=== PATIENT | female | born 1965 | race Caucasian/White ===

== ENCOUNTER 2019-09-16 12:57 | Emergency (ER) | payer OTHER ==
[~2019-09-16] VITALS: Ht 177.8 cm; Wt 63.5 kg
--- OUTSIDE RECORDS SUMMARY | ~2019-09-16 | XMS | Encounter Summary ---
Demographics + + + | Address | [address] | | | [place] [address] | + + + | Home Phone | | + + + | Preferred Language | Unknown | + + + | Marital Status | | + + + | Buddhism Affiliation | Unknown | + + + | Race | Unknown | + + + | Ethnic Group | Unknown | + + + Author + + + | Author | [facility] | | | and Kaliaana | + + + | Organization | [facility] | | | and Kaliaana | + + + | Address | Unknown | + + + | Phone | Unavailable | + + + Support + + +---------+ + | Name | Relationship | Address | Phone | + + +---------+ + | Archie Fulton | ECON | Unknown | | + + +---------+ + Care Team Providers + +------+ + | Care Edge Inker Heels Name | Role | Phone | + +------+ + | Bridget Hernandez PA-C | PCP | | + +------+ + Encounter Details +--------+---------+ + + + | Date | Type | Department | Care Team | Description | +--------+---------+ + + + | 07/22/ | Office | [facility] | Sim Abdalla, | Health examination | | 2020 | Visit | EXAMS [address] | [address] | of defined | | | | [place] | [place] | subpopulation | | | | [phone] | [id number] | (Primary Dx) | | | | [phone] | | | +--------+---------+ + + + Social History + +-------+ +--------+------+ | Tobacco Use | Types | Packs/Day | Years | Date | | | | | Used | | + +-------+ +--------+------+ | Never Assessed | | | | | + +-------+ +--------+------+ + + + | Sex Assigned at | Date Recorded | | | | + + + | Not on file | | + + + documented as of this encounter Last Filed Vital Signs + + + + + | Vital Sign | Reading | Time Taken | Comments | + + + + + | Blood Pressure | 122/78 | 07/23/2019 1:09 PM | | | | | PDT | | + + + + + | Pulse | 78 | 07/23/2019 1:09 PM | | | | | PDT | | + + + + + | Temperature | - | - | | + + + + + | Respiratory Rate | 17 | 07/23/2019 1:09 PM | | | | | PDT | | + + + + + | Oxygen Saturation | - | - | | + + + + + | Inhaled Oxygen | - | - | | | Concentration | | | | + + + + + | Weight | 64.2 kg (141 lb 8.6 | 07/23/2019 1:09 PM | | | | oz) | PDT | | + + + + + | Height | 177.8 cm (5' 10") | 07/23/2019 1:09 PM | | | | | PDT | | + + + + + | Body Mass Index | 20.31 | 07/23/2019 1:09 PM | | | | | PDT | | + + + + + documented in this encounter Progress Notes Sim Abdalla MD - 07/23/2019 1:00 PM Anita presented for a Third Class [facility] medical exam. Several people in her immediate family have been involved in flying, including her father a nd 2 brothers. One brother is a professional pilot boat deckhand in [place] and another brother is working toward his private license. 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 She has had a few medical issues but no serious health problems. For a while she was troub led by occasional migraine headaches. 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 Apparently some o f the chemicals being used for the painting were quite noxious and bothered many people. Jeet marcelo herself found that the chemicals stimulated her migraine headaches. She went through alphonso pause about 4 years ago and since that time she has had no headaches although she is still t roubled by occasional hot flushing. She has had a section. She had release of a right trigger thumb. She has been tr oubled by some arthritic discomfort in her hands and has found that tumarac has been helpful in relieving her symptoms. She is taking no prescription medications. She does take a multivitamin, B2, some mineral supplements, and tumarac. She listed allergies to sulfa and Compazine. She has been troubled by very poor vision nearly all her life. She began wearing glasses i n grade school. She had a recent eye examination. She wears glasses with unifocal lenses b ut will need the addition of a reading component in the near future. On examination she appeared to be in good general health. The only notable finding on her exam was her need for corrective lenses for both near and distant vision. She has a small s car at the base of her right thumb related to trigger finger release. She has a scar across her lower abdomen related to her C-sections. Her urinalysis was normal. Disposition: She was given a third class medical certificate with the limitation to wear co rrective lenses. documented in this en counter Plan of Treatment Not on filedocumented as of this encounter Procedures + +--------+ + + + | Procedure Name | Priori | Date/Time | Associated Diagnosis | Comments | | | ty | | | | + +--------+ + + + | POC URINE COLLECTION | Routin | 07/23/2019 | Health examination | Results for this | | | e | 1:13 PM | of defined | procedure are in the | | | | PDT | subpopulation | results section. | + +--------+ + + + documented in this encounter Results POCT Urinalysis Dipstick Automated (07/23/2019 1:13 PM PDT) + + + + + + | Component | Value | Ref Range | Performed | Pathologist | | | | | At | Signature | + + + + + + | Color, UA, | Yellow | Yellow, Light | | | | POC | | Yellow | | | + + + + + + | Clarity, | Clear | | | | | UA, POC | | | | | + + + + + + | Glucose, | Negative | Negative | | | | UA, POC | | | | | + + + + + + | Bilirubin, | Negative | Negative | | | | UA, POC | | | | | + + + + + + | Ketones, | Negative | Negative, 100 | | | | UA, POC | | mg/dL | | | + + + + + + | Specific | 1.015 | 1.001 - 1.030 | | | | Mehama, | | | | | | UA, POC | | | | | + + + + + + | Blood, UA, | Negative | Negative | | | | POC | | | | | + + + + + + | pH, UA, POC | 5.5 | 5.0, 6.0, 7.0, | | | | | | 8.0, 5.5, 6.5, | | | | | | 7.5 | | | + + + + + + | Protein, | Negative | Negative | | | | UA, POC | | | | | + + + + + + | Urobilinoge | 0.2 | 0.2, Negative, | | | | n, UA, POC | | Normal, < 0.2 | | | | | | mg/dL, 1 mg/dL, | | | | | | < 0.2 E.U./dl, | | | | | | 1.0 E.U./dL, | | | | | | 0.2 mg/dL | | | + + + + + + | Nitrite, | Negative | Negative | | | | UA, POC | | | | | + + + + + + | Leukocyte | Negative | Negative | | | | Esterase, | | | | | | UA, POC | | | | | + + + + + + | Reducing | | | | | | Substances, | | | | | | Urine | | | | | + + + + + + | Bilirubin | | | | | | Confirmatio | | | | | | n by | | | | | | Ictotest, | | | | | | Urine | | | | | + + + + + + | Remark | | | | | + + + + + + + + | Specimen | + + | Urine | + + documented in this encounter Visit Diagnoses + + | Diagnosis | + + | Health examination of defined subpopulation - Primary | + + documented in this encounter
--- OUTSIDE RECORDS SUMMARY | ~2019-09-16 | XMS | Clinical Summary ---
Demographics + + + | Address | [address] | | | [place] [address] | + + + | Home Phone | | + + + | Preferred Language | Unknown | + + + | Marital Status | | + + + | Yazidism Affiliation | Unknown | + + + | Race | Unknown | + + + | Ethnic Group | Unknown | + + + Author + + + | Author | [facility] | | | and [place] | + + + | Organization | [facility] | | | and Kaliaana [...] Team Providers + +------+ + | Care Nut Sheller Name | Role | Phone | + +------+ + | Bridget Hernandez PA-C | PCP | | + +------+ + Allergies Not on File Medications No known medications Active Problems Not on file Encounters +--------+---------+ + + + | Date | Type | Specialty | Care Team | Description | +--------+---------+ + + + | 07/22/ | Office | General Surgery | Sim Abdalla, | Health examination | | 2020 | Visit | | MD | of defined | | | | | | subpopulation | | | | | | (Primary Dx) | +--------+---------+ + + + from Last 3 Months Social History + +-------+ +--------+------+ | Tobacco [...] on file | | + + + Last Filed Vital Signs + + + [...] | | + + + + + Plan of Treatment + + +-------+ + | Health Maintenance | Due Date | Last | Comments | | | | Done | | + + +-------+ + | Hepatitis C | | | | | Screening | 4 | | | + + +-------+ + | Vaccine: | | | | | Dtap/Tdap/Td (1 - | 3 | | | | Tdap) | | | | + + +-------+ + | Cervical Cancer | | | | | Screening (Pap) | 4 | | | + + +-------+ + | Colorectal Cancer | | | | | Screening | 4 | | | | (Colonoscopy) | | | | + + +-------+ + | Vaccine: Zoster (1 | | | | | of 2) | 4 | | | + + +-------+ + | Breast Cancer | | | | | Screening | 9 | | | + + +-------+ + | Vaccine: Influenza | | | | | (#1) | 0 | | | + + +-------+ + Procedures + +--------+ + + + | [...] section. | + +--------+ + + + from Last 3 Months Results POCT Urinalysis Dipstick Automated (07/23/2019 1:13 [...] 1.001 - 1.030 | | | | Nora, | | | | | | UA, [...] + + | Urine | + + from Last 3 Months Advance Directives + + + + + | Type | Date Recorded | Patient | Explanation | | | | Communications Writer | | + + + + + | Power of | | | | | Audio Installer | | | | + + + + + | Advance | | | | | Directive | | | | + + + + +
[~2019-09-16 12:57] MED LIST: IRON325 M1 PO; MAGNESIUM250 MG PO; MULTIVITAMINS1 EAC7 PO
[2019-09-16] MEDS ORDERED: CRUTCH1 EACH MISC (14:02)
== END 2019-09-16 14:27 | disposition home or self-care (01) ==
LOC: ED 12:57
DX: S93.402A Sprain of unspecified ligament of left ankle, initial encounter (principal); Z88.2 Allergy status to sulfonamides; Z88.8 Allergy status to other drugs, medicaments and biological substances; X50.1XXA Overexertion from prolonged static or awkward postures, initial encounter
CPT/HCPCS: 73610; 99283-25

== ENCOUNTER 2021-10-18 05:40 | Day surgery (SDC) | payer OTHER ==
[~2021-10-18] VITALS: Ht 177.8 cm; Wt 65.9 kg
[~2021-10-18 05:40] MED LIST changes: +CEPHALEXIN500 MG PO; +CRANBERRY425 MG PO; +CRUTCH1 EACH MISC; +HYDROCODON-ACE1 EA10 PO; +L-LYSINE500 M1 PO; +OSTERA TABLET1 EACH PO; +PROBIOTIC1 EAC6 PO; +TURMERIC500 M3 PO; +VITAMIN E OIL-V52 M1 TOP
[2021-10-18] MEDS ORDERED: [UNRECOGNIZED DRUG - OTHER] PO (06:13)
--- NOTE | 2021-10-18 09:22 | NUR ---
10/18/21 0922 Prema Payne 0889 PT ARRIVED IN PACU SLEEPY WITH NO C/O'S. 0845 XRAYS DONE. 0900 SITTING AT BEDSIDE SIPPING ON WATER. 0915 BOOT PLACED ON L FOOT. DC INSTRUCTIONS GIVEN. ALL QUESTIONS ANSWERED. LEFT VIA W/C.
--- NOTE | 2021-10-21 10:56 | OR ---
[facility] [address] [place], [place] [address] Signed DATE OF OPERATION: 10/18/2021 SURGEON: Rome Gunderson DPM PREOPERATIVE DIAGNOSIS: Hallux valgus with bunion deformity, left foot. POSTOPERATIVE DIAGNOSIS: Hallux valgus with bunion deformity, left foot. PORTAL DEVELOPER SURGEON: Babatunde Mckeon DPM ANESTHESIA: IV general with local block, left foot. TIP SCOURER: Rome Hubbard. SPECIMEN TO PATHOLOGY: None. PROCEDURE: Bunionectomy with first metatarsal osteotomy, left foot. DESCRIPTION OF PROCEDURE: The patient was brought to the operating room and placed on the table in the supine position. Anesthesia Department administered IV sedation, after which a local block was given to the left foot using a total of 10 mL 1:1 mixture of 2% lidocaine plain and 0.5% ropivacaine plain. The left leg and foot were then prepped and draped in the usual sterile manner and an Esmarch was used for hemostasis. Attention was initially directed to the dorsal/medial aspect of the left first MPJ, where a linear longitudinal incision was made approximately 1 cm medial to the extensor hallucis longus tendon. The incision was deepened through subcutaneous tissue using careful dissection and cautery as necessary for hemostasis. Once at the level of deep fascia and joint capsule, the incision was deepened to bone and soft tissues were reflected medially to expose the bony prominence at the medial first metatarsal head. A small amount of bone was then resected from the medial first metatarsal head, removing approximately 2 mm of bone. At this time, attention was directed to the first Electronically Signed By: ROME GUNDERSON DPM 10/21/21 1056 PATIENT NAME: STANLEY OATES OPERATIVE REPORT DATE OF : 61 REPORT #: [id number] PHYSICIAN: ROME GUNDERSON DPM PCP: KOURTNEY FLOYD REPORT IS CONFIDENTIAL AND NOT TO BE RELEASED WITHOUT AUTHORIZATION [facility] [address] [place], [place] [address] Signed intermetatarsal space, where a lateral release was performed. Attention then redirected to the medial first metatarsal head, where a long dorsal arm chevron osteotomy was made from medial to lateral through the first metatarsal. The metatarsal head was then shifted laterally, 9 mm, then secured with two K-wires. The position and alignment were then checked intraoperatively with fluoroscopy and alignment was deemed adequate. At this time, two cannulated screws were placed over the pins securing the osteotomy site using a 3.0 x 16 mm screw more distally and the more proximal screw, a 3.0 x 14 mm screw. At this time, the attention was directed to the remaining shelf of bone medially, which was then resected using power instrumentation. The power instrumentation also used to smooth the bone margins medially and to remove any sharp areas of bone. At this time, the surgical site was irrigated with copious amounts of normal saline. The alignment as well as hardware checked with intraoperative fluoroscopy and then the surgical site closed with 3-0 Vicryl for deep fascia and joint capsule, subcutaneous tissue closed using 4-0 Vicryl and skin closed with skin bashir. Dressings then applied consisting of Adaptic, Betadine-soaked gauze, dry gauze, Flexicon, and Coban for mild compression, as well as to splint the position to the toe. INTRAOPERATIVE COMPLICATIONS: None. ESTIMATED BLOOD LOSS: Less than 5 mL. The patient tolerated the procedure and the anesthesia well and left the operating room with vital signs stable and vascular status intact to the left foot as evidenced by hyperemia with removal of the Esmarch. Rome Gunderson DPM DFB/KANEL /[id number] Electronically Signed By: ROME GUNDERSON DPM 10/21/21 1056 PATIENT NAME: STANLEY OATES OPERATIVE REPORT DATE OF : 61 REPORT #: [id number] PHYSICIAN: ROME GUNDERSON DPM PCP: KOURTNEY FLOYD REPORT IS CONFIDENTIAL AND NOT TO BE RELEASED WITHOUT AUTHORIZATION [address] [place], [place] [address] Signed Copies: ~ Electronically Signed By: ROME GUNDERSON DPM 10/21/21 1056 PATIENT NAME: STANLEY OATES OPERATIVE REPORT DATE OF : 61 REPORT #: [id number] PHYSICIAN: ROME GUNDERSON DPM PCP: KOURTNEY FLOYD REPORT IS CONFIDENTIAL AND NOT TO BE RELEASED WITHOUT AUTHORIZATION
== END 2021-10-18 09:15 | disposition home or self-care (01) ==
LOC: DS 05:40 → OPS 05:40 → DS 07:30 → OPS 07:30
PROVIDERS: ATTEND Podiatrist Foot Surgery
PROC: 0QSP04Z Reposition Left Metatarsal with Internal Fixation Device, Open Approach (ICD-10-PCS; principal; 2021-10-18 07:30)
DX: M20.12 Hallux valgus (acquired), left foot (principal); Z88.2 Allergy status to sulfonamides; M19.90 Unspecified osteoarthritis, unspecified site; G25.81 Restless legs syndrome; M21.612 Bunion of left foot
CPT/HCPCS: 01480; 73620; 73630; C1713; J0690; J1100; J2001; J2250; J2405; J2704; J2795; J3010; J7121

== ENCOUNTER 2024-11-02 11:57 | Day surgery (SDC) | payer OTHER ==
[~2024-11-02] VITALS: Ht 177.8 cm; Wt 66.0 kg
--- NOTE | ~2024-11-02 | OR ---
[facility] [address] [place], [place] [address] Draft DATE OF OPERATION: 11/02/2024 SURGEON: Mark Singh MD PREOPERATIVE DIAGNOSIS: Colon screening. POSTOPERATIVE DIAGNOSIS: Normal colon to cecum. PROCEDURE: Total colonoscopy to cecum. ANESTHESIA: Intravenous sedation fentanyl 100 mcg and Versed 5 mg. INDICATION: This 59-year-old white woman is a patient of SHEILA Clark. She was referred to me with a breast biopsy finding showing atypical hyperplasia and is anticipated to have a LENA piano teacher localization excision of the breast lesion this . Additionally, she has need for colonoscopy. Her last colonoscopy was greater than [address] Davide Alonso which was said to be normal. She has no current symptoms of bleeding, diarrhea or constipation and no family history of colon cancer though her mother has had colon polyps. She is admitted to undergo screening colonoscopy, understands the risk of bleeding, infection, and perforation. FINDINGS: The prep was excellent. Complete colonoscopy was undertaken of the cecum with full intubation of the cecum. She had no evidence of polyps, diverticular formation, colitis, or cancer. DESCRIPTION OF PROCEDURE: The patient was brought to the endoscopy suite and placed in lateral decubitus position, given intravenous sedation to the point of slurred speech and nystagmus. Digital rectal examination was normal. An Olympus video colonoscope was passed in the rectum and manipulated throughout the colon ultimately intubating the cecum itself. The ileocecal valve and appendiceal orifice were normal. Scope was withdrawn from that point. Examination throughout showed no sign of abnormality specifically no polyps, diverticular formation, colitis, PATIENT NAME: STANLEY OATES OPERATIVE REPORT DATE OF : 61 REPORT #: [id number] PHYSICIAN: MARK SINGH MD PCP: KOURTNEY FLOYD REPORT IS CONFIDENTIAL AND NOT TO BE RELEASED WITHOUT AUTHORIZATION [facility] [address] [place], [place] [address] Draft or cancer. Retroflexed view of the rectum was normal. Scope was removed. The patient was taken to the recovery room in good condition. CONCLUDING DIAGNOSIS: Normal colon to cecum. PLAN: Recommend repeat colonoscopy in 10 years, sooner if clinically indicated. She will return to the ongoing care of SHEILA Clark. Additionally, her biopsy of the breast is planned for this by LENA gallegos localization technique. MD JAREN Preciado/CYRUS /[id number] cc: SHEILA Clark Copies: KOURTNEY FLOYD ~ PATIENT NAME: STANLEY OATES OPERATIVE REPORT DATE OF : 61 REPORT #: [id number] PHYSICIAN: MARK SINGH MD PCP: KOURTNEY FLOYD REPORT IS CONFIDENTIAL AND NOT TO BE RELEASED WITHOUT AUTHORIZATION
[~2024-11-02 11:57] MED LIST changes: +CALCIUM + D3 E1 EACH PO; +DOTTI1 EAC2 TD; +IBLOOD GLUCOSE TEST STRIP 1 EA TEST VI PRN; +LACTATED RINGER'S 1,000 ML IV SCH; +LIDOCAINE HCL 1% 5 ML SDV INJ ONE; +MAG GLYCINATE100 MG PO; +MAGNESIUM CITR100 M1 PO; +MIDAZOLAM HCL 5 MG/5 ML VIAL IV PRN; +PROGESTERONE100 MG PO; +SAMBUCUS E50 MG/5 M1 PO; +[UNRECOGNIZED DRUG - OTHER] PO; +fentaNYL citrate 100 MCG/2 ML VIAL IV PRN
[2024-11-02 12:19] VITALS: BP 153/80
[2024-11-02] MEDS ORDERED: MIDAZOLAM HCL 5 MG/5 ML VIAL ONE (12:54)
[2024-11-02] MEDS ORDERED: fentaNYL citrate 100 MCG/2 ML VIAL ONE (12:54)
--- NOTE | 2024-11-02 13:45 | NUR ---
11/02/24 1345 Hoda Zamudio 1338: PT ARRIVES TO PACU. REPORT RECEIVED FROM VETERINARY PHYSIOLOGIST.
[2024-11-02 14:30] VITALS: BP 124/73
== END 2024-11-02 14:38 | disposition home or self-care (01) ==
LOC: DS 11:57
PROVIDERS: ATTEND Surgery
PROC: 0DJD8ZZ Inspection of Lower Intestinal Tract, Via Natural or Artificial Opening Endoscopic (ICD-10-PCS; principal; 2024-11-02 13:00)
DX: Z12.11 Encounter for screening for malignant neoplasm of colon (principal); N60.91 Unspecified benign mammary dysplasia of right breast; Z88.2 Allergy status to sulfonamides; Z88.5 Allergy status to narcotic agent; Z88.8 Allergy status to other drugs, medicaments and biological substances
CPT/HCPCS: J2250; J3010; J7121

== ENCOUNTER 2024-11-05 05:50 | Day surgery (SDC) | payer OTHER ==
[~2024-11-05] VITALS: Ht 177.8 cm; Wt 66.0 kg
[~2024-11-05 05:50] MED LIST changes: -IBLOOD GLUCOSE TEST STRIP 1 EA TEST VI PRN; -LIDOCAINE HCL 1% 5 ML SDV INJ ONE; -MIDAZOLAM HCL 5 MG/5 ML VIAL IV PRN; -fentaNYL citrate 100 MCG/2 ML VIAL IV PRN
[2024-11-05 06:03] VITALS: BP 150/85
[2024-11-05] MEDS ORDERED: IBLOOD GLUCOSE TEST STRIP 1 EA TEST VI PRN ×2 (07:00→08:15)
[2024-11-05] MEDS ORDERED: HEParin SOD (PORCINE) 5,000 UNIT/ML SDV SUB-Q SCH (07:00)
[2024-11-05] MEDS ORDERED: LIDOCAINE HCL 1% 5 ML SDV INJ ONE (07:00)
[2024-11-05] MEDS ORDERED: CEFAZOLIN SODIUM 2 GM in SODIUM CHLORIDE 0.9% 100 ML IV SCH (07:00)
[2024-11-05] MEDS ORDERED: LIDOCAINE HCL 2% 5 ML SDV ONE (07:25)
[2024-11-05] MEDS ORDERED: fentaNYL citrate 100 MCG/2 ML VIAL ONE (07:25)
--- NOTE | 2024-11-05 07:51 | NUR ---
PT NOT AVAILABLE FOR VISIT. PROVIDED PRAYER.
[2024-11-05] MEDS ORDERED: KETOROLAC TROMETHAMINE 30 MG/ML VIAL ONE (07:52)
[2024-11-05] MEDS ORDERED: DEXAMETHASONE SOD PHOS 4 MG/ML VIAL ONE (07:52)
[2024-11-05] MEDS ORDERED: ACETAMINOPHEN 1,000 MG/100 ML VIAL ONE (07:52)
[2024-11-05] MEDS ORDERED: fentaNYL citrate 50 MCG/ML SDV IV PRN (08:15)
[2024-11-05] MEDS ORDERED: HYDROmorphone HCL 1 MG/ML SYR IV PRN (08:15)
[2024-11-05] MEDS ORDERED: NALOXONE HCL 0.4 MG SYR IV PRN ×2 (08:15→08:45)
--- NOTE | 2024-11-05 08:29 | NUR ---
11/05/24 0829 Lianne Fernandez 0821-PATIENT ARRIVED TO PACU ON 6L MASK NONAROUSABLE ORAL AIRWAY IN PLACE. RN DOING JAW THRUST TO MAINTAIN OPEN AIRWAY. SINUS BRADYCARDIA HR UPPER 50'S. IVF INFUSING. DRESSING INTACT 0827-RN CONTINUING TO DO JAW THRUST WITH ORAL AIRWAY IN PLACE 6L MASK RR EVEN. PATIENT NOT AROUSABLE TO VERBAL OR TACTILE STIMULI.
[2024-11-05] MEDS ORDERED: MOTRIN IB200 MG PO (08:41)
[2024-11-05] MEDS ORDERED: TYLENOL EXTRA500 MG PO (08:41)
[2024-11-05] MEDS ORDERED: PERCOCET 7.5-31 EACH PO (08:42)
[2024-11-05] MEDS ORDERED: OXYCODONE/APAP 7.5/325 TAB PO PRN (08:45)
[2024-11-05] MEDS ORDERED: LACTATED RINGER'S 1,000 ML IV SCH (08:45)
[2024-11-05] MEDS ORDERED: ACETAMINOPHEN 500 MG TAB PO PRN (08:45)
[2024-11-05 08:56] VITALS: BP 141/76
--- NOTE | 2024-11-05 09:04 | NUR ---
RECIEVED REPORT FROM WOOD MACHINE CARVER. PT VITALS, PAIN, AND N/V NOTED. WOUND DRESSING NOTED. PT IS RESTING COMFORTABLY WITH NO NEEDS AT THIS TIME. PLAN TO START FOOD AND WATER UNDERSTOOD BY PT.
[2024-11-05 09:52] VITALS: BP 134/89
--- NOTE | 2024-11-05 09:54 | NUR ---
PT UP TO VOID. NO N/V AND PAIN REMAINS THE SAME AND TOLLERABLE. PT IS DRESSING SELF.
--- NOTE | 2024-11-05 10:26 | NUR ---
1000- PT SELF DRESSED WITHOUT ISSUE. DC EDUCATION PROVIDED AND PT VERBALIZED UNDERSTANDING. IV REMOVED WITHOUT ISSUE OR COMPLAINT. 1020- PT TAKEN TO CAR VIA WHEELCHAIR. PT WAS ABLE TO TRANSFER TO CAR WITHOUT ISSUE OR ASSISTANCE.
--- NOTE | 2024-11-08 13:51 | OR ---
[facility] [address] [place], [place] [address] Signed DATE OF OPERATION: 11/05/2024 SURGEON: Mark Singh MD PREOPERATIVE DIAGNOSIS: Right central lateral breast with intraductal hyperplasia and focal atypia. POSTOPERATIVE DIAGNOSES: 1. Right central lateral breast with intraductal hyperplasia and focal atypia. 2. Dense fibrocystic changes of the breast. PROCEDURE: LENA lieutenant ballistics localized right breast excision. ANESTHESIA: General LMA, Darien Wylie CRNA and local 4 mL of 0.25% Marcaine with epinephrine. INDICATION: This 59-year-old woman is a patient of Kourtney Hernandez and underwent right-sided breast biopsy September 16, 2024, with findings confirming dense fibrosis and intraductal hyperplasia with focal atypia. This is based on core biopsy. Suspicious right breast calcifications prompted the biopsy. The atypical hyperplasia prompts definitive excision at this time. There is no palpable lesion. On that basis, the LENA lieutenant ballistics technology for localization for excisional biopsy has been recommended. The risk of operation includes, but are not limited to bleeding, infection, and cosmetic defect. She understands this and wished to proceed. FINDINGS: LENA lieutenant ballistics was easily identified in the 9 o'clock position a centimeter or so outside the areolar margin. A circumareolar incision was made. Wide excision showed dense breast tissue as well as various cysts and cyst fluid. Once excised, the LENA lieutenant ballistics was confirmed to be on the specimen by radiograph and was considered "on the edge," but generous tissue was excised. She tolerated the procedure well with good cosmesis. DESCRIPTION OF PROCEDURE: The patient was brought to the operating room after confirming LENA lieutenant ballistics function in the preanesthesia area. She was given a general LMA type anesthetic. Preoperative antibiotic Ancef was given and sequential compression device stockings were used. The right breast was prepared with a chlorhexidine solution and draped sterilely. Using the LENA lieutenant ballistics probe with a sterile cover, the area in question was identified approximately Electronically Signed By: MARK SINGH MD 11/08/24 1351 PATIENT NAME: STANLEY OATES OPERATIVE REPORT DATE OF : 61 REPORT #: [id number] PHYSICIAN: MARK SINGH MD PCP: KOURTNEY HERNANDEZ REPORT IS CONFIDENTIAL AND NOT TO BE RELEASED WITHOUT AUTHORIZATION [facility] [address] [place], [place] [address] Signed at the 9 o'clock position in the right breast. The areolar margin was marked and a curvilinear incision made on the areolar margin. Dissection carried through the dermis with electrocautery. A lateral flap was elevated and resection undertaken using the LENA lieutenant ballistics probe as a guide. Wide excision was undertaken, but not excessively so as to avoid deformity of the breast given the histologic findings. Once excised, the specimen was oriented with a short stitch superior and a long stitch lateral. LENA lieutenant ballistics probe confirmed that the implant was in the excised specimen. A specimen radiograph was then obtained, interpreted by the radiologist to include the LENA lieutenant ballistics though considered to be on the edge of the specimen more or less. Irrigation was undertaken and hemostasis was assured with electrocautery. The wound was closed in layers with interrupted 2-0 Vicryl and running subcuticular 3-0 Vicryl for the skin. Steri-Strips were applied. An Acticoat dressing was also applied. She tolerated the procedure well. She was taken to the recovery room in good condition after extubation. MD JAREN Preciado/KANEL /[id number] cc: SHEILA Clark Copies: KOURTNEY HERNANDEZ ~ Electronically Signed By: MARK SINGH MD 11/08/24 1351 PATIENT NAME: STANLEY OATES OPERATIVE REPORT DATE OF : 61 REPORT #: [id number] PHYSICIAN: MARK SINGH MD PCP: KOURTNEY HERNANDEZ REPORT IS CONFIDENTIAL AND NOT TO BE RELEASED WITHOUT AUTHORIZATION
--- NOTE | 2024-11-10 14:42 | PATH ---
[facility] [address] [place], [place] [address] Signed SPECIMEN(S): A RIGHT BREAST SPECIMEN SOURCE: A. RIGHT BREAST CLINICAL HISTORY: Atypical ductal hyperplasia. FINAL PATHOLOGIC DIAGNOSIS: Tissue from right breast, biopsy: - Benign breast tissue with fibrocystic change and prior biopsy related features. - No ADH or malignancy identified. COMMENT: Fibrocystic changes are present to include apocrine metaplasia, cystic hyperplasia, duct ectasia, and ductal hyperplasia without atypia. A CK5/6 stain on block A4 confirms the presence of benign ductal hyperplasia. Slides are reviewed by a second pathologist. [facility] MICROSCOPIC EXAMINATION: Histologic sections of all submitted blocks are examined by light microscopy. These findings, together with the gross examination, support the pathologic diagnosis. GROSS DESCRIPTION: The specimen, labeled and designated "Brady FultonSita, " and designated on the requisition "right breast," is received in formalin and consists of nine gram oriented portion of yellow-benavidez fibroadipose tissue that is 3.8 x 3.6 x 2.2 cm. A short suture is present and identifies the superior margin; a long suture identifies the lateral margin. The specimen is inked as follows: superior - blue; inferior - green; medial - red; lateral - orange; anterior - yellow; and posterior - black. The specimen is serially sectioned from superior to inferior into eight slices revealing a metallic advertising agent detector in slice seven surrounded by pink-benavidez white congested rubbery fibrous tissue. Approximately 70% of the specimen is a pink-white cystic fibrous tissue and 30% yellow-benavidez greasy adipose tissue. A discrete mass lesion is not grossly identified. The specimen is entirely submitted in 8 cassettes. PATIENT NAME: STANLEY OATES PATHOLOGY DATE OF : 61 REPORT #: [id number] PHYSICIAN: AB MORGAN PCP: KOURTNEY FLOYD REPORT IS CONFIDENTIAL AND NOT TO BE RELEASED WITHOUT AUTHORIZATION [facility] [address] [place], [place] [address] Signed Cassette Summary: (A1) slice one, superior soft tissue resection margin, perpendicular (A2) slice two (A3) slice three (A4) slice four (A5) slice five (A6) slice six (A7) slice seven, advertising agent detector (A8) slice eight, inferior soft tissue resection margin, perpendicular Time of collection: 8:08 AM November 05, 2024. Time into formalin: 8:15 AM November 05, 2024. Processor load time: 9 AM November 06, 2024. Ischemic time: 7 minutes Total fixation time in formalin: 24 hours 45 minutes The ASCO/CAP guidelines related to HER2 and hormone receptor testing in breast specimens have been met and the specimen has been placed in formalin within one hour and fixed in 10% neutral buffered formalin for 6 to 72 hours. FB (under the direct supervision of a pathologist) The Gross Description was prepared using a voice recognition system. The report was reviewed for accuracy; however, sound-alike word errors, addition and/or deletions may occur. If there is any question about this report, please contact Client Services. ADDITIONAL NOTES: Immunohistochemical and/or in situ hybridization studies if performed in this case included appropriate positive controls that reacted as expected. This test was developed and its performance characteristics determined by [facility]. It has not been cleared or approved by the U.S. Food and Drug Administration. The FDA has determined that such clearance or approval is not necessary. This test is used for clinical purposes. It should not be regarded as investigational or for research. [facility] is certified under the Clinical Laboratory Improvement Amendments of 1988 (CLIA) as qualified to perform high complexity clinical laboratory testing. PERFORMING LABORATORY: Technical component was performed by [facility], [facility] [place] [address] (CLIA# [id number]). Professional interpretation was PATIENT NAME: STANLEY OATES PATHOLOGY DATE OF : 61 REPORT #: [id number] PHYSICIAN: AB PATHOLOGY PCP: KOURTNEY FLOYD REPORT IS CONFIDENTIAL AND NOT TO BE RELEASED WITHOUT AUTHORIZATION [address] [address] Signed performed by [facility], [address] [place] [id number] (CLIA#: [id number]). Diagnostician: Juan David Camargo MD Pathologist Electronically Signed 11/10/2024 Copies: ~ PATIENT NAME: STANLEY OATES PATHOLOGY DATE OF : 61 REPORT #: [id number] PHYSICIAN: AB MORGAN PCP: KOURTNEY FLOYD REPORT IS CONFIDENTIAL AND NOT TO BE RELEASED WITHOUT AUTHORIZATION
== END 2024-11-05 10:20 | disposition home or self-care (01) ==
LOC: DS 05:50
PROVIDERS: ATTEND Surgery
PROC: 0HBT0ZZ Excision of Right Breast, Open Approach (ICD-10-PCS; principal; 2024-11-05 07:30)
DX: N60.91 Unspecified benign mammary dysplasia of right breast (principal); Z88.2 Allergy status to sulfonamides; Z88.8 Allergy status to other drugs, medicaments and biological substances; Z88.5 Allergy status to narcotic agent
CPT/HCPCS: 00400; 76098; J0131; J0688; J1100; J1644; J1885; J2003; J2405; J2704; J3010; J7121